=== PATIENT | female | born 1990 | race Caucasian/White ===

== ENCOUNTER 2018-09-04 10:09 | Emergency (ER) | payer OTHER ==
[2018-09-04 10:21] VITALS: BP 121/88; PULSE 103; TEMP 98.3; BMI 36.9
[2018-09-04] MEDS ORDERED: ALBUTEROL SO4 2.5/IPRATROPIUM 0.5 INH SOL 3 ML VIAL.NEB. NEB ONE ×4 (10:27→11:13)
--- NOTE | 2018-09-04 10:27 | PDOC ---
History of Present Illness - General Chief Complaint: Cold Symptoms Stated Complaint: COLD LIKE SYMPTOMS Time Seen by Provider: 09/04/18 10:20 History Source: Patient Exam Limitations: No Limitations - History of Present Illness Initial Comments: 09/04/18 10:27 Patient has been coughing with a cold, upper respiratory symptoms 5-7 days. 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 had only one day of fever which was 3 days ago and it was low-grade 100.3 and since that time has not felt feverish. Has come because coughing has not been resolved with any over-the -counter medications or ibuprofen helping with the pleuritic chest pain she has now. Timing/Duration: reports: getting worse Severity: reports: moderate Associated Symptoms: reports: denies symptoms, cough, fever/chills, nasal congestion. denies: shortness of breath Past History - Travel Traveled outside of the country in the last 30 days: No Close contact w/someone who was outside of country & ill: No - Past Medical History Allergies/Adverse Reactions: Allergies Allergy/AdvReac Type Severity Reaction Status Date / Time No Known Allergies Allergy Verified 09/04/18 10:15 Home Medications: Ambulatory Orders Albuterol 0.083% Nebulizer Lottie [Ventolin 0.083% Nebulizer Soln -] 1 neb NEB Q4H PRN #30 vial 09/04/18 Albuterol Sulfate Inhaler - [Ventolin HFA Inhaler -] 1 - 2 inh PO Q4H #1 inhaler 09/04/18 predniSONE [Deltasone -] 20 mg PO BID #8 tablet 09/04/18 COPD: No - Reproductive History (#): 0 Para: 0 Spontaneous : 0 - Suicide/Smoking/Psychosocial Hx Smoking History: Never smoked Have you smoked in the past 12 months: No Hx Alcohol Use: No Substance Use Type: None Review of Systems - Review of Systems Able to Perform ROS?: Yes Is the patient limited [place]an proficient: Yes Constitutional: Yes: Symptoms Reported, See HPI, Chills, Malaise. No: Fever HEENTM: Yes: Symptoms Reported, Nose Congestion, Throat Pain, Throat Swelling Respiratory: Yes: Symptoms reported, See HPI, Cough (with yellow phlegm production ) ABD/GI: Yes: See HPI. No: Symptoms Reported Integumentary: No: Symptoms Reported Neurological: Yes: See HPI. No: Symptoms reported All Other Systems: Reviewed and Negative *Physical Exam - Vital Signs Last Vital Signs Temp Pulse Resp BP Pulse Ox 98.3 F 103 H 18 121/88 99 09/04/18 10:16 09/04/18 10:16 09/04/18 10:16 09/04/18 10:16 09/04/18 10:16 - Physical Exam General Appearance: Yes: Nourished, Appropriately Dressed, Mild Distress HEENT: positive: KANDY, Normal ENT Inspection, TMs Normal (congested but landmarks easily visualized), Pharynx Normal, Nasal Congestion, Rhinorrhea. negative: Pharyngeal Erythema, Tonsillar Exudate, Tonsillar Erythema Neck: positive: Supple. negative: Lymphadenopathy (R), Lymphadenopathy (L) Respiratory/Chest: positive: Decreased Breath Sounds (course in respiratory expiratory breath sounds and provocative of moist cough), Wheezing. negative: Lungs Clear, Normal Breath Sounds Progress Note - Progress Note Progress Note: Upper respiratory infection, much improved after DuoNeb and prednisone. We will continue, no evidence of bacterial infection therefore will hold on antibiotics *DC/Admit/Observation/Transfer Diagnosis at time of Disposition: URI, acute - Discharge Dispostion Disposition: HOME Condition at time of disposition: Stable Decision to Admit order: No - Prescriptions Prescriptions: Albuterol 0.083% Nebulizer Lottie [Ventolin 0.083% Nebulizer Soln -] 1 neb NEB Q4H PRN #30 vial PRN Reason: Cough Albuterol Sulfate Inhaler - [Ventolin HFA Inhaler -] 1 - 2 inh PO Q4H #1 inhaler predniSONE [Deltasone -] 20 mg PO BID #8 tablet - Referrals - Patient Instructions Printed Discharge Instructions: DI for Viral Upper Respiratory Infection -- Adult Additional Instructions: Rest, drink lots of fluids: Teas, water, soups, Pedialyte Saltwater gargles Steamy showers/seem to face break up mucus Avoid contact with others until fevers and cough resolved Lots of handwashing and good hygiene Continue [id number] medications for symptomatic relief Tylenol or Motrin for fever and pain Continue albuterol nebulizers every 4-6 hours for the next 2 days then as needed for continued cough Prednisone as directed until completed Followup with private physician in one to 2 days Return to emergency department / pediatric hospital for worsened symptoms, fevers, dehydration - Post Discharge Activity Forms/Work/School Notes: Back to Work
[2018-09-04] MEDS ORDERED: predniSONE 20 MG TABLET (UD) PO ONE (11:10)
[2018-09-04] MEDS ORDERED: predniSONE 20 MG TABLET (UD) ONE (11:13)
== END 2018-09-04 11:58 | disposition home or self-care (01) ==
LOC: JERFT 10:09
PROC: 3E0F7GC Introduction of Other Therapeutic Substance into Respiratory Tract, Via Natural or Artificial Opening (ICD-10-PCS; principal; 2018-09-04)
PROC: 3E0F7GC Introduction of Other Therapeutic Substance into Respiratory Tract, Via Natural or Artificial Opening (ICD-10-PCS; 2018-09-04)
DX: J06.9 Acute upper respiratory infection, unspecified (principal)
CPT/HCPCS: 84703; 99281-25

== ENCOUNTER 2018-09-11 10:08 | Emergency (ER) | payer OTHER ==
[2018-09-11 10:14] VITALS: BP 113/73; PULSE 109; TEMP 98.2; BMI 34.9
--- NOTE | 2018-09-11 10:37 | PDOC ---
History of Present Illness - General Chief Complaint: Cold Symptoms Stated Complaint: BODYACHES Time Seen by Provider: 09/11/18 10:21 History Source: Patient Exam Limitations: No Limitations - History of Present Illness Associated Symptoms: reports: cough, fever/chills, muscle aches, nasal congestion. denies: chest pain/soreness, dizziness, earache, facial pain, headache, lightheadedness, shortness of breath, sinus infection, sore throat ( cough, congestion and chills X 2wks), wheezing Past History - Travel Close contact w/someone who was outside of country & ill: No - Past Medical History Allergies/Adverse Reactions: Allergies Allergy/AdvReac Type Severity Reaction Status Date / Time No Known Allergies Allergy Verified 09/11/18 10:11 Home Medications: Ambulatory Orders Benzonatate [Tessalon Pearls -] 100 mg PO TID #21 capsule 09/11/18 Cetirizine HCl 10 mg PO DAILY 30 Days #30 tablet 09/11/18 COPD: No - Reproductive History (#): 0 Para: 0 Spontaneous : 0 - Immunization History Immunization Up to Date: Yes - Suicide/Smoking/Psychosocial Hx Smoking History: Never smoked Have you smoked in the past 12 months: No Hx Alcohol Use: No Drug/Substance Use Hx: No Substance Use Type: None Respiratory Specific PMHX - Complaint Specific PMHX Angina: No Review of Systems - Review of Systems Is the patient limited Croatian proficient: No Constitutional: Yes: Chills, Fever. No: Night Sweats HEENTM: No: Nose Congestion, Throat Pain, Throat Swelling, Mouth Swelling Respiratory: Yes: Cough, Productive cough. No: Shortness of Breath, SOB at Rest , Stridor, Wheezing Cardiac (ROS): No: Chest Pain, Lightheadedness, Palpitations, Chest Tightness Neurological: No: Headache, Dizziness *Physical Exam - Vital Signs Last Vital Signs Temp Pulse Resp BP Pulse Ox 98.2 F 109 H 16 113/73 99 09/11/18 10:12 09/11/18 10:12 09/11/18 10:12 09/11/18 10:12 09/11/18 10:12 - Physical Exam General Appearance: Yes: Nourished, Appropriately Dressed HEENT: positive: EOMI, KANDY, TMs Normal, Pharynx Normal, Nasal Congestion, Rhinorrhea Neck: positive: Normal Thyroid, Supple Respiratory/Chest: positive: Lungs Clear, Normal Breath Sounds Cardiovascular: positive: Regular Rhythm, Regular Rate, S1, S2 Gastrointestinal/Abdominal: positive: Normal Bowel Sounds Integumentary: positive: Normal Color 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 Since with persistent cough fever chills and muscle aches 2 weeks. Patient was seen here in the emergency room a week ago and was treated for viral URI she was given prednisone for 4 day she completed a course however cough has persisted there is no sputum production she is having chills and muscle pain. Patient reports she is a social smoker she denies any wheezing any chest pain. Examination consist of nasal congestion her lungs are clear workup would include a chest x-ray to rule out any pulmonary pathology or infection disposition pending 09/11/18 11:00 CXR neg *DC/Admit/Observation/Transfer Diagnosis at time of Disposition: Viral URI with cough - Discharge Dispostion Disposition: HOME Condition at time of disposition: Stable - Prescriptions Prescriptions: Benzonatate [Tessalon Pearls -] 100 mg PO TID #21 capsule Cetirizine HCl 10 mg PO DAILY 30 Days #30 tablet - Referrals Referrals: Edgar Mercado MD [Staff Physician] - - Patient Instructions Printed Discharge Instructions: DI for Viral Upper Respiratory Infection -- Adult Additional Instructions: Your chest xray was normal today please follow up your primary care doctor Take medication as prescribed Return to the Emergency Department if worsening symptoms occurs - Post Discharge Activity Forms/Work/School Notes: Back to Work
== END 2018-09-11 11:17 | disposition home or self-care (01) ==
LOC: JERFT 10:08
DX: J06.9 Acute upper respiratory infection, unspecified (principal)
CPT/HCPCS: 71046-TC-FY; 84703; 99281-25

== ENCOUNTER 2021-01-07 03:12 | Emergency (ER) | payer OTHER ==
[2021-01-07 03:49] VITALS: BMI 43.8
[2021-01-07] MEDS ORDERED: SODIUM CHLORIDE 500 ML IV ONE (04:40)
[2021-01-07 05:40] VITALS: BP 123/70; PULSE 79; TEMP 98.5
[2021-01-07] MEDS ORDERED: SODIUM CHLORIDE 250 ML IV ONE (05:40)
[2021-01-07 06:20] LABS: URINE APPEARANCE CLEAR; URINE BILIRUBIN NEGATIVE (NEGATIVE); URINE COLOR YELLOW; URINE GLUCOSE (UA) NEGATIVE (NEGATIVE); URINE KETONE NEGATIVE (NEGATIVE); URINE LEUK ESTERASE NEGATIVE (NEGATIVE); URINE NITRITE NEGATIVE (NEGATIVE); URINE PROTEIN NEGATIVE (NEGATIVE); URINE UROBILINOGEN 0.2 mg/dL (0.2-1.0)
[2021-01-07 06:26] LABS: BASO % 2.7 % (0-2.0); EOS % 1.1 % (0-4.5); HEMATOCRIT 37.9 % (32.4-45.2); HEMOGLOBIN 12.9 GM/dL (10.7-15.3); LYMPH % 21.8 % (8-40); MCH 28.8 pg (25.7-33.7); MCHC 34.2 g/dl (32.0-36.0); MEAN CELL VOLUME 84.1 fl (80-96); MEAN PLT VOLUME 9.9 fl (7.5-11.1); MONO % 6.6 % (3.8-10.2); NEUT % 67.8 % (42.8-82.8); PLATELET COUNT 252 10^3/uL (134-434); RDW 15.3 % (11.6-15.6); WHITE BLOOD COUNT 7.5 K/mm3 (4.0-10.0)
[2021-01-07 06:31] LABS: CHLORIDE 110 mmol/L (98-107); SODIUM 140 mmol/L (136-145)
[2021-01-07 06:33] LABS: CALCIUM 8.8 mg/dL (8.5-10.1)
[2021-01-07 06:34] LABS: ALBUMIN 2.8 g/dl (3.4-5.0); AMYLASE 22 U/L (25-115); ANION GAP 9 MMOL/L (8-16); CO2 21 mmol/L (21-32); GLUCOSE,RANDOM 92 mg/dL (74-106); LIPASE 33 U/L (73-393)
[2021-01-07 06:36] LABS: SGOT/AST 13 U/L (15-37); SGPT/ALT 20 U/L (13-61)
[2021-01-07 06:37] LABS: CREATININE 0.3 mg/dL (0.55-1.3)
[2021-01-07 06:38] LABS: BILIRUBIN,TOTAL 0.3 mg/dL (0.2-1); TOT PROT 6.3 g/dl (6.4-8.2)
[2021-01-07 06:39] LABS: ALK PHOS 59 U/L (45-117)
[2021-01-07 07:39] LABS: BLOOD UREA NITROGEN 2.7 mg/dL (7-18)
== END 2021-01-07 07:05 | disposition home or self-care (01) ==
LOC: JER 03:12
PROC: 3E0337Z Introduction of Electrolytic and Water Balance Substance into Peripheral Vein, Percutaneous Approach (ICD-10-PCS; principal; 2021-01-07)
PROC: 3E0337Z Introduction of Electrolytic and Water Balance Substance into Peripheral Vein, Percutaneous Approach (ICD-10-PCS; 2021-01-07)
DX: O26.892 Other specified pregnancy related conditions, second trimester (principal); R10.9 Unspecified abdominal pain; Z3A.20 20 weeks gestation of pregnancy
CPT/HCPCS: 36415; 80053; 81003; 82150; 83690; 85025; 87086; 99284-25

== ENCOUNTER 2021-05-20 06:00 | Inpatient (IN) | payer OTHER ==
[2021-05-20] MEDS ORDERED: morphine SULFATE/PF 1 MG/2 ML (2cc Syringe - QUVA) ONE (07:56)
[2021-05-20 08:06] VITALS: BMI 46.7
[2021-05-20] MEDS ORDERED: CITRIC ACID/SODIUM CITRATE 30 ML UNIT-DOSE CUP PO ONE (08:24)
[2021-05-20] MEDS ORDERED: ELECTROLYTE-148 SOLN 1,000 ML IV SCH (08:30)
[2021-05-20] MEDS ORDERED: PHENYLEPHRINE HCL 10 MG/1 ML SINGLE DOSE VIAL ONE (09:14)
[2021-05-20] MEDS ORDERED: OXYTOCIN 20 UNITS in 0.9% NS 20 UNIT/1,000 ML INFUS.BAG IV ONE (09:14)
[2021-05-20] MEDS ORDERED: ceFAZolin SODIUM 1 GM VIAL ONE ×2 (09:14→17:53)
[2021-05-20] MEDS ORDERED: OXYTOCIN 10 UNITS/ML VIAL ONE (09:14)
[2021-05-20] MEDS ORDERED: ONDANSETRON 4 MG/2 ML VIAL ONE (09:14)
[2021-05-20] MEDS ORDERED: DEXAMETHASONE SOD PHOSPHATE 4 MG/1 ML VIAL ONE (09:14)
[2021-05-20] MEDS ORDERED: KETOROLAC TROMETHAMINE 30 MG/1 ML VIAL ONE (09:14)
[2021-05-20 09:54] LABS: CORD HCO3 25.1 mmHg (20-29); CORD PCO2 68.5 mmHg (30-78); CORD pH 7.181 (7.14-7.44)
[2021-05-20 10:05] LABS: CORD BASE EXCESS -4.6 mmol/L (0-2); CORD HCO3 23.7 mmHg (20-29); CORD pH 7.236 (7.14-7.44)
[2021-05-20] MEDS ORDERED: IBUPROFEN 600 MG TABLET (FP) PO PRN (10:05)
[2021-05-20] MEDS ORDERED: ACETAMINOPHEN 325 MG TABLET (FP) PO PRN (10:05)
[2021-05-20] MEDS ORDERED: ONDANSETRON 4 MG/2 ML VIAL IVPUSH PRN (10:05)
[2021-05-20] MEDS: PRENATAL VITAMINS W/ FOLIC ACID TABLET (FP) PO SCH (10:40)
[2021-05-20 12:11] LABS: HIV INTERPRETATION NEGATIVE (NEGATIVE)
[2021-05-20] MEDS ORDERED: IBUPROFEN 800 MG/8 ML IJ IVPB ONE ×2 (12:28→12:35)
[2021-05-20] MEDS ORDERED: WITCH HAZEL 50% (TUCKS) 40 PAD/JAR PAD TP PRN (12:43)
[2021-05-20] MEDS ORDERED: BENZOCAINE 20% 57 GM BOTTLE TP PRN (12:43)
[2021-05-20] MEDS ORDERED: METHYLERGONOVINE MALEATE 0.2 MG/1 ML AMP IM PRN (12:43)
[2021-05-20] MEDS ORDERED: SENNOSIDES/DOCUSATE COMBO (SENNA PLUS) TABLET (UD) PO PRN (12:43)
[2021-05-20] MEDS ORDERED: BENZOCAINE 28 GM HEMORRHOIDAL OINTMENT TP PRN (12:43)
[2021-05-20] MEDS: OXYTOCIN 20 UNITS in 0.9% NS 20 UNIT/1,000 ML INFUS.BAG IV SCH (16:54)
[2021-05-20] MEDS ORDERED: DEXTROSE 5%-WATER - 50 ML IVPB ONE (17:53)
[2021-05-20] MEDS: CEFAZOLIN 1 GM in DEXTROSE 5%-WATER - 50 ML IVPB SCH (18:00)
[2021-05-20] MEDS: SIMETHICONE 80 MG TAB.CHEW (FP) PO PRN (20:29)
[2021-05-20] MEDS: IBUPROFEN 800 MG/8 ML IJ IVPB PRN (20:29)
[2021-05-20] MEDS: ESCITALOPRAM OXALATE 10 MG TABLET PO SCH (22:46)
[2021-05-21] MEDS ORDERED: oxyCODONE HCL 5 MG TABLET PO PRN ×2 (00:43)
[2021-05-21] MEDS ORDERED: DEXTROSE 5%-WATER - 50 ML IVPB ONE ×2 (01:54→09:52)
[2021-05-21] MEDS ORDERED: ceFAZolin SODIUM 1 GM VIAL ONE ×2 (01:55→09:52)
[2021-05-21] MEDS: CEFAZOLIN 1 GM in DEXTROSE 5%-WATER - 50 ML IVPB SCH ×2 (02:30→10:26)
[2021-05-21] MEDS: IBUPROFEN 800 MG/8 ML IJ IVPB PRN (05:06)
[2021-05-21 07:59] LABS: BASO % 0.6 % (0-2.0); EOS % 1.1 % (0-4.5); HEMATOCRIT 32.8 % (32.4-45.2); HEMOGLOBIN 11.3 GM/dL (10.7-15.3); LYMPH % 33.3 % (8-40); MCH 29.9 pg (25.7-33.7); MCHC 34.4 g/dl (32.0-36.0); MEAN CELL VOLUME 86.9 fl (80-96); MEAN PLT VOLUME 9.9 fl (7.5-11.1); MONO % 7.5 % (3.8-10.2); NEUT % 57.5 % (42.8-82.8); PLATELET COUNT 218 10^3/uL (134-434); RBC 3.78 M/mm3 (3.60-5.2); RDW 14.5 % (11.6-15.6); WHITE BLOOD COUNT 10.3 K/mm3 (4.0-10.0)
[2021-05-21] MEDS: PRENATAL VITAMINS W/ FOLIC ACID TABLET (FP) PO SCH (10:23)
[2021-05-21] MEDS: SIMETHICONE 80 MG TAB.CHEW (FP) PO PRN ×2 (10:23→21:14)
[2021-05-21] MEDS: IBUPROFEN 600 MG TABLET (FP) PO PRN ×3 (10:24→23:57)
[2021-05-21] MEDS: ENOXAPARIN NA (PORCINE) 40 MG/0.4 ML DISP.SYRIN SQ SCH (10:31)
[2021-05-21] MEDS ORDERED: BISACODYL 10 MG SUPP.RECT RC PRN (12:43)
[2021-05-21] MEDS: ACETAMINOPHEN 325 MG TABLET (FP) PO PRN ×2 (13:35→17:37)
[2021-05-21] MEDS: ESCITALOPRAM OXALATE 10 MG TABLET PO SCH (21:45)
[2021-05-22] MEDS: OXYTOCIN 20 UNITS in 0.9% NS 20 UNIT/1,000 ML INFUS.BAG IV SCH (07:21)
[2021-05-22] MEDS: ACETAMINOPHEN 325 MG TABLET (FP) PO PRN (07:52)
[2021-05-22] MEDS: IBUPROFEN 600 MG TABLET (FP) PO PRN (07:52)
[2021-05-22 08:22] VITALS: BP 133/86; PULSE 87; TEMP 97.9
[2021-05-22] MEDS: PRENATAL VITAMINS W/ FOLIC ACID TABLET (FP) PO SCH (10:35)
[2021-05-22] MEDS: ENOXAPARIN NA (PORCINE) 40 MG/0.4 ML DISP.SYRIN SQ SCH (10:35)
== END 2021-05-22 15:05 | disposition home or self-care (01) | DRG 788 ==
LOC: JLDR 06:00 → J3W 11:25
PROVIDERS: ADMIT Obstetrics & Gynecology; ATTEND Obstetrics & Gynecology
PROC: 10D00Z1 Extraction of Products of Conception, Low, Open Approach (ICD-10-PCS; principal; 2021-05-20)
DX: O34.211 Maternal care for low transverse scar from previous cesarean delivery (principal); N85.8 Other specified noninflammatory disorders of uterus; O99.214 Obesity complicating childbirth; E66.01 Morbid (severe) obesity due to excess calories; Z3A.39 39 weeks gestation of pregnancy; Z37.0 Single live birth
CPT/HCPCS: 36415; 36600; 82803; 85025; 86762; 87340; 87389; 88307-TC; 94010